=== PATIENT | female | born 1945 | race African-American/Black ===

== ENCOUNTER 2017-02-25 17:42 | Emergency (ER) | payer MEDICARE, MEDICAID ==
[2015-11-10 15:21] VITALS: BMI 37.6
[~2017-02-25 17:42] MED LIST: AMITIZA24 MCG PO; BAYER CHEWABLE81 MG PO; CARDIZEM CD120 MG PO; COREG 3.1253.125 MG GT; COZAAR50 MG PO; HUMALOG 30100 UNITS/ SC; HYDROCODON-ACE1 EAC7 PO; LANTUS SOL100 UNIT/1 SC; LEVEMIR100 U/M1 SQ; MIRALAX17 GM PO; REGLAN10 MG PO; VICTOZA0.6 MG/0.1 SQ; ZOCOR40 MG PO
== END 2017-02-25 19:29 | disposition home or self-care (01) ==
LOC: D.ER 17:42
DX: S43.401A Unspecified sprain of right shoulder joint, initial encounter (principal); W18.30XA Fall on same level, unspecified, initial encounter; Y93.89 Activity, other specified; Y92.019 Unspecified place in single-family (private) house as the place of occurrence of the external cause; M25.561 Pain in right knee; M25.562 Pain in left knee; I10 Essential (primary) hypertension; E87.6 Hypokalemia; E11.9 Type 2 diabetes mellitus without complications; Z79.4 Long term (current) use of insulin

== ENCOUNTER 2017-08-17 07:33 | Emergency (ER) | payer MEDICARE ==
[2015-11-10 15:21] VITALS: BMI 37.6
[2017-08-17 08:16] LABS: BASOPHILS 0.3 % (0-2); EOSINOPHILS 2.2 % (0-7); HEMATOCRIT 33.7 % (36.0-48.0); HEMOGLOBIN 11.8 g/dL (12-16); IMMATURE GRANULOCYTES 0.3 % (0-5); LYMPHOCYTES 32.5 % (15-50); MCH 31.8 pg (26.0-34.0); MCV 90.8 fL (80.0-100.0); MEAN PLATELET VOLUME 10.7 fL (7.4-10.4); MONOCYTES 6.1 % (2-11); NEUTROPHILS 58.6 % (40-80); PLATELET COUNT 225 10x3/uL (130-400); RBC 3.71 10x6/uL (4.00-5.40); RDW 12.4 % (11.5-14.5); WBC 7.3 10x3/uL (4.8-10.8)
[2017-08-17 08:35] LABS: ALBUMIN 3.6 g/dL (3.4-5.0); ANION GAP 10.3 mmol/L (8-16); BILIRUBIN - TOTAL 1.1 mg/dL (0.2-1.3); CALCIUM 10.5 mg/dL (8.5-10.1); CARBON DIOXIDE 26.3 mmol/L (21.0-32.0); CREATININE - SERUM 1.3 mg/dL (0.6-1.3); POTASSIUM - SERUM 3.6 mmol/L (3.5-5.1); PROTEIN - SERUM 6.8 g/dL (6.4-8.2)
[2017-08-17 12:27] LABS: APPEARANCE CLEAR (CLEAR); BILIRUBIN NEGATIVE (NEGATIVE); COLOR YELLOW (YELLOW); GLUCOSE NEGATIVE (NEGATIVE); KETONE NEGATIVE (NEGATIVE); LEUKOCYTE ESTERASE NEGATIVE (NEGATIVE); NITRITE NEGATIVE (NEGATIVE); PROTEIN NEGATIVE (NEGATIVE); UROBILINOGEN NORMAL (NORMAL)
== END 2017-08-17 13:10 | disposition home or self-care (01) ==
LOC: D.ER 07:33
PROVIDERS: Emergency Medicine; Family Medicine
DX: R10.9 Unspecified abdominal pain (principal); I10 Essential (primary) hypertension; E11.9 Type 2 diabetes mellitus without complications; Z79.4 Long term (current) use of insulin

== ENCOUNTER 2017-09-15 07:54 | Emergency (ER) | payer MEDICARE ==
[2015-11-10 15:21] VITALS: BMI 37.6
[~2017-09-15 07:54] MED LIST changes: -COREG 3.1253.125 MG GT; +COREG 3.1253.125 MG PO
== END 2017-09-15 09:35 | disposition home or self-care (01) ==
LOC: D.ER 07:54
DX: S91.352A Open bite, left foot, initial encounter (principal); W53.11XA Bitten by rat, initial encounter; Y93.89 Activity, other specified; Y92.029 Unspecified place in mobile home as the place of occurrence of the external cause; S91.105A Unspecified open wound of left lesser toe(s) without damage to nail, initial encounter; I10 Essential (primary) hypertension; E11.9 Type 2 diabetes mellitus without complications; Z79.4 Long term (current) use of insulin

== ENCOUNTER 2017-10-07 17:45 | Emergency (ER) | payer MEDICARE ==
[2015-11-10 15:21] VITALS: BMI 37.6
== END 2017-10-07 17:46 | disposition left against medical advice (07) ==
LOC: D.ER 17:45
DX: Z02.9 Encounter for administrative examinations, unspecified (principal)

== ENCOUNTER 2017-10-07 21:11 | Emergency (ER) | payer MEDICARE ==
[2015-11-10 15:21] VITALS: BMI 37.6
[2017-10-07 23:31] LABS: BASOPHILS 0 % (0-2); EOSINOPHILS 0 % (0-7); HEMATOCRIT 32.9 % (36.0-48.0); HEMOGLOBIN 11.6 g/dL (12-16); IMMATURE GRANULOCYTES 0.4 % (0-5); LYMPHOCYTES 11.3 % (15-50); MCH 31.7 pg (26.0-34.0); MCHC 35.3 g/dL (31.0-37.0); MCV 89.9 fL (80.0-100.0); MEAN PLATELET VOLUME 11.1 fL (7.4-10.4); MONOCYTES 8.1 % (2-11); NEUTROPHILS 80.2 % (40-80); PLATELET COUNT 255 10x3/uL (130-400); RBC 3.66 10x6/uL (4.00-5.40); RDW 12.3 % (11.5-14.5); WBC 12.5 10x3/uL (4.8-10.8)
[2017-10-07 23:50] LABS: ALBUMIN 3.7 g/dL (3.4-5.0); ANION GAP 13.5 mmol/L (8-16); BILIRUBIN - TOTAL 1.1 mg/dL (0.2-1.3); CALCIUM 10.3 mg/dL (8.5-10.1); CARBON DIOXIDE 30.5 mmol/L (21.0-32.0); CREATININE - SERUM 1.3 mg/dL (0.6-1.3); PROTEIN - SERUM 7.9 g/dL (6.4-8.2)
[2017-10-08 00:36] LABS: APPEARANCE CLEAR (CLEAR); COLOR YELLOW (YELLOW)
[2017-10-08 00:37] LABS: BACTERIA FEW /hpf (NONE SEEN); BILIRUBIN NEGATIVE (NEGATIVE); GLUCOSE 1000 mg/dL (NEGATIVE); KETONE SMALL mg/dL (NEGATIVE); NITRITE NEGATIVE (NEGATIVE); PROTEIN TRACE mg/dL (NEGATIVE); RED CELLS - URINE 0-5 /hpf (0-5); SPECIFIC GRAVITY 1.015 (1.005-1.020); UROBILINOGEN NORMAL (NORMAL); WHITE CELLS - URINE 0-5 /hpf (0-5)
== END 2017-10-08 04:23 | disposition home or self-care (01) ==
LOC: D.ER 21:11
PROVIDERS: Family Medicine
DX: K59.00 Constipation, unspecified (principal); E87.6 Hypokalemia; I10 Essential (primary) hypertension; E11.9 Type 2 diabetes mellitus without complications; Z79.4 Long term (current) use of insulin

== ENCOUNTER 2017-10-10 19:30 | Observation (INO) | payer MEDICARE ==
[~2017-10-10] VITALS: Ht 162.6 cm; Wt 73.7 kg
[2017-10-10 21:21] LABS: ALBUMIN 3.2 g/dL (3.4-5.0); ALKALINE PHOSPHATASE 69 U/L (46-116); ALT (SGPT) 16 U/L (10-68); BILIRUBIN - TOTAL 1.09 mg/dL (0.2-1.3); CALCIUM 11.2 mg/dL (8.5-10.1); CARBON DIOXIDE 29.7 mmol/L (21.0-32.0); CHLORIDE - SERUM 99 mmol/L (98-107); CREATININE - SERUM 1.4 mg/dL (0.6-1.3); PROTEIN - SERUM 7.5 g/dL (6.4-8.2); SODIUM 137 mmol/L (136-145); UREA NITROGEN 27 mg/dL (7-18); eGFR NON AFRICAN AMERICAN 39 mL/min (90-120)
[2017-10-10 21:22] LABS: BASOPHILS 0.1 % (0-2); EOSINOPHILS 0.5 % (0-7); HEMATOCRIT 35.4 % (36.0-48.0); HEMOGLOBIN 12.2 g/dL (12-16); IMMATURE GRANULOCYTES 0.4 % (0-5); LYMPHOCYTES 21.2 % (15-50); MCH 31.9 pg (26.0-34.0); MCHC 34.5 g/dL (31.0-37.0); MCV 92.4 fL (80.0-100.0); MEAN PLATELET VOLUME 11.2 fL (7.4-10.4); NEUTROPHILS 69.8 % (40-80); PLATELET COUNT 244 10x3/uL (130-400); RBC 3.83 10x6/uL (4.00-5.40); RDW 12.2 % (11.5-14.5); WBC 12.8 10x3/uL (4.8-10.8)
[2017-10-10 21:25] LABS: LIPASE 69 U/L (73-393)
[2017-10-10 21:26] LABS: CALC OSMOLALITY 284 mosm/kg (275-300); GLUCOSE 201 mg/dL (74-106); TROPONIN-I < 0.017 ng/mL (0.000-0.060)
[2017-10-11 00:04] LABS: ANION GAP 13.6 mmol/L (8-16); CALCIUM 10.6 mg/dL (8.5-10.1); CARBON DIOXIDE 28.1 mmol/L (21.0-32.0); CREATININE - SERUM 1.1 mg/dL (0.6-1.3)
[2017-10-11 00:05] LABS: POTASSIUM - SERUM 3.7 mmol/L (3.5-5.1)
--- NOTE | 2017-10-11 02:37 | NUR ---
PATIENT CAME IN FROM ER WITH NO IV ACCESS. SEVERAL MEMBERS OF THE ER STAFF WERE UNABLE TO OBTAIN IV ACCESS. ORDER FOR A PICC LINE WILL BE PLACED IN THE MORNING. PATIENTS DAUGHTER HAS REQUESTED FOR SECURITY ON PATIENT INFORMATION AND TO BE NOTIFIED IF THERE ARE ANY CHANGES. PATIENT IS CONFUSED, AND HAS NOT KEPT HER MEDICATIONS DOWN IN SEVERAL DAYS DUE TO N/V. CHIEF CONCERN N/V, WEIGHT LOSS, CONFUSION. BED IN LOW POSITION, CALL LIGHT IN REACH.
[2017-10-11 04:24] VITALS: BP 106/47; BP 162/87
--- NOTE | 2017-10-11 04:59 | NUR ---
PATIENT REFUSES TO STAY IN BED, SHE IS UP IN A CHAIR AND NEEDING ONE ON ONE CARE. CHAIR IS LOCATED IN NURSES STATION SO THAT SHE CAN BE WATCHED CLOSELY BECAUSE SHE IS VERY CONFUSED.
--- NOTE | 2017-10-11 06:20 | NUR ---
PATIENT IS STILL SITTING UP IN A CHAIR AT THE NURSES STATION. CONFUSED AND UNABLE TO FOLLOW COMANDS. PATIENT IS OCCUPIED AT ALL TIMES.
--- NOTE | 2017-10-11 06:42 | NUR ---
UNABLE TO OBTAIN URINE SAMPLE DUE TO INCONTINENCE.
--- NOTE | 2017-10-11 07:48 | NUR ---
ASSESSMENT DONE. DENIES NEEDS.
[2017-10-11 08:17] VITALS: BP 130/96
--- NOTE | 2017-10-11 09:15 | NUR ---
PT SITTING UP IN CHAIR AT NURSES STATION WITH HER NURSE. PT IS RESTING QUIETLY AND BEING COOPERATIVE. NO CURRENT NEEDS AT THIS TIME. WILL CPOC.
--- NOTE | 2017-10-11 10:30 | NUR ---
PT COUGHING WHEN DRINKING WATER. DR LAM. MEDS HELD.
[2017-10-11 12:16] VITALS: BP 158/88
[2017-10-11 14:22] VITALS: Ht 162.6 cm; Wt 73.7 kg
[2017-10-11 14:54] VITALS: BP 173/90
[2017-10-11 20:06] VITALS: BP 134/62
--- NOTE | 2017-10-11 20:08 | NUR ---
STARTED FLUIDS NS AT 75 ML/HR. WRAPPED IV IN CURLEX TO AVOID BEING DISLODGED. PATIENT TOLERATED. DAUGHTER AT BEDSIDE. BED LOW, CALL LIGHT IN REACH.
--- NOTE | 2017-10-11 23:56 | NUR ---
PATIENT IS RESTLESS AND SPITTING. PRN ZOFRAN ADMINISTERED PER ORDERS FOR NAUSIA. PATIENT IS RESTING MORE COMFORTABLY TONIGHT THEN LAST NIGHT BECAUSE OF THE FLUIDS, HALODOL AND ZOFRAN. DENIES ANY NEEDS AT THIS TIME. CALL LIGHT IN REACH, BED IN LOW POSITION.
[2017-10-12 00:45] VITALS: BP 125/67
--- NOTE | 2017-10-12 02:44 | NUR ---
PATIENT WAS SLEEPING WHILE SITTING UP IN BED. SHE HAD SOME THICKENED WATER AND APPLE JUICE , SHE COUGHED WHEN SWALLOWING EVEN THE NECTAR THICK LIQUIDS. PATIENT DENIES ANY NEEDS, SHE IS CONFUSED AND TALKS ABOUT FAMILY MEMBERS WHO ARE NOT IN THE ROOM. NS IS RUNNING AT 75. BED LOW, CALL LIGHT IN REACH. SHE IS LOCATED NEAR THE NURSES STATION.
--- NOTE | 2017-10-12 04:03 | NUR ---
PT AWAKE, ALERT, SITTING UP IN BED, ROCKING BACK AND FORTH, CONFUSED. NO NEEDS AT THIS TIME. CONTINUE TO MONITOR CLOSELY. BED LOW, CALL LIGHT IN REACH, SIDE RAILS X 2, HOB 20 DEGREES.
--- NOTE | 2017-10-12 04:51 | NUR ---
PATIENT IS AWAKE AND ENERGETIC.PATIENT IS CONFUSED , NOT ORIENTED TO DATE, TIME, PLACE , OR SITUATION. SHE DOES KNOW HER FIRST NAME. PATIENT REFUSES GETTING CLEANED UP , SHE WILL NOT REMOVE HER SOILED PULL UP, OR ALLOW STAFF TO PLACE A CLEAN PAD UNDER HER. BED LOW , CALL LIGHT IN REACH.
[2017-10-12 05:11] VITALS: BP 113/53
--- NOTE | 2017-10-12 07:18 | NUR ---
AM ROUNDS- PT UP TO SIDE OF BED, PT CONFUSED ONLY ORIENTED TO SELF. RE-ORIENTED PT, PT ASKING FOR A BLANKET, WILL PROVIDED PT WITH BLANKET. BED LOW AND WHEELS LOCKED, CALL LIGHT IN REACH, NAD NOTED, WILL CONTINUE PLAN OF CARE.
[2017-10-12 07:56] LABS: BASOPHILS 0.1 % (0-2); EOSINOPHILS 1.4 % (0-7); HEMATOCRIT 33.6 % (36.0-48.0); HEMOGLOBIN 11.6 g/dL (12-16); IMMATURE GRANULOCYTES 0.7 % (0-5); MCH 31.7 pg (26.0-34.0); MCHC 34.5 g/dL (31.0-37.0); MCV 91.8 fL (80.0-100.0); MEAN PLATELET VOLUME 10.6 fL (7.4-10.4); MONOCYTES 9.8 % (2-11); PLATELET COUNT 280 10x3/uL (130-400); RBC 3.66 10x6/uL (4.00-5.40); RDW 12.2 % (11.5-14.5)
--- NOTE | 2017-10-12 08:10 | NUR ---
ADMINISTERED AM MEDS. PT KEPT TRYING TO SPIT MED BACK OUT. MADE SURE PT TOOK ALL MEDS. PT UP TO SIDE OF BED, EATING BREAKFAST. BED ALARM ON, CALL LIGHT IN REACH, NAD NOTED, WILL CONTINUE PLAN OF CARE.
[2017-10-12 08:15] VITALS: BP 145/80
[2017-10-12 08:19] LABS: ANION GAP 11.3 mmol/L (8-16); CREATININE - SERUM 1.3 mg/dL (0.6-1.3); POTASSIUM - SERUM 3.3 mmol/L (3.5-5.1)
[2017-10-12 12:14] VITALS: BP 140/70
--- NOTE | 2017-10-12 13:46 | NUR ---
PT REQUESTED FOR HER BLOOD SUGAR TO BE TAKE. BLOOD SUGAR WAS 229, PT UP TO CHAIR, STATES " I AM READY TO GO HOME, CAN YOU GIVE ME A RIDE. RE- ORIENTED PT TO WHERE SHE IS AT. PT DENIES ANY OTHER NEEDS AT THIS TIME. CALL LIGHT IN REACH, NAD NOTED, WILL CONTINUE PLAN OF CARE.
[2017-10-12 16:02] VITALS: BP 122/64
--- NOTE | 2017-10-12 17:04 | NUR ---
BLOOD SUGAR OF 152, 4UNITS GIVEN PER S/S. PT IN BED, EATING DINNER. ASKING ABOUT DAUGHTER, INFORMED HER THAT DAUGHTER STATED THAT SHE WOULD BE BACK LATER TONIGHT. PT DENIES ANY OTHER NEEDS AT THIS TIME. CALL LIGHT IN BRYN, MAEGAN MAT IN PLACE. NAD NOTED
--- NOTE | 2017-10-12 21:56 | NUR ---
PATIENT IS CONFUSED AND UNABLE TO FOLLOW DIRECTIONS. SHE IS ON NECTAR THICK LIQUIDS. SHE IS ABLE TO TAKE HER ORAL MEDICATIONS WITH PUDDING. SHE HAS SOME DIFFICULTY SWALLOWING AND GAGS WHEN SHE TAKES A DRINK. SHE SPITS OUT HER PILLS SEVERAL TIMES, BUT AFTER THREE TRYS SHE SWALLOWS THEM DOWN. PATIENT IS LEFT SITTING UP IN BED AT LEAST 10 TO 15 MINIUTES AFTER MEDICATION ADMINISTRATION . BED LOW , CALL LIGHT IN REACH. PATIENT IS PLACED NEAR NURSES STATION.
--- NOTE | 2017-10-12 22:18 | NUR ---
FSBS WAS 87 AT 2034. TREATED WITH APPLE JUICE , AND A PUDDING CUP. NOW AT 2229 HER FSBS IS 174.
--- NOTE | 2017-10-13 01:46 | NUR ---
PATIENT HAS BEEN VERY RESTLESS AND TRYING TO GET OUT OF BED. SHE IS UNAWARE OF HER LOCATION, AND THE SITUATION. GIVEN HER PRN MED FOR COMFORT AND HOPING THAT IT WILL ALLOW HER TO REST.BED LOW CALL LIGHT IN REACH.
[2017-10-13 01:59] VITALS: BP 141/96
--- NOTE | 2017-10-13 05:25 | NUR ---
SHRINKER AT BEDSIDE TO OBTAIN VITALS, CALL LIGHT IN REACH. WILL CONTINUE WITH PLAN OF CARE.
[2017-10-13 05:54] VITALS: BP 113/77
[2017-10-13 07:55] VITALS: BP 167/71
--- NOTE | 2017-10-13 08:13 | NUR ---
ADMINISTERED AM MEDS. PT IN BED, A DROWSY NOT REALLY WANTING TO EAT BREAKFAST. PT DENIES ANY NEEDS AT THIS TIME. CALL LIGHT IN REACH, MAEGAN MAT IN PLACE, NAD NOTED, WILL CONTINUE PLAN OF CARE.
--- NOTE | 2017-10-13 11:31 | NUR ---
BLOOD SUGAR OF 212, 8UNITS OF HUMALOG GIVEN PER S/S. PT IN BED, FIXING TO EAT LUNCH, DENIES ANY NEEDS, MAEGAN MAT IN PLACE, NAD NOTED.
[2017-10-13 12:21] VITALS: BP 129/67
--- NOTE | 2017-10-13 14:00 | NUR ---
DAUGHTER MAN AT BEDSIDE, WANTS PT TO BE TAKEN OFF CONFIDENTIAL PT. WILL CALL ADMISSION TO HAVE IT CHANGE.
--- NOTE | 2017-10-13 15:16 | NUR ---
PT IN BED SLEEPING. DAUGHTER AND OTHER FAMILY AT BEDSIDE, NAD NOTED, CALL LIGHT IN REACH.
--- NOTE | 2017-10-13 16:31 | NUR ---
BLOOD SUGAR OF 144, NO COVERAGE NEEDED PER S/S. DAUGHTER AND GRANDAUGHTER AT BEDSIDE, PT DENIES ANY NEEDS AT THIS TIME. CALL LIGHT IN REACH, NAD NOTED.
--- NOTE | 2017-10-13 19:55 | NUR ---
PT IN BED ATTEMPTING TO CLIMB OUT. YELLING AT PEOPLE FROM THE HALLWAY. VERY CONFUSED AND RESTLESS. THINKS SHE IS SHOPPING AND TAKING CARE OF A BABY. PRN HALDOL WILL BE GIVEN WITH EVENING MEDS. BREATHING EVEN AND UNLABORED. BED IN LOW POSITION, CALL LIGHT WITHIN REACH. WILL CTM.
--- NOTE | 2017-10-13 21:25 | NUR ---
PT HAD BM IN BED. COMPLETE BATH GIVEN. LINENS CHANGED. BEDTIME MEDICATION GIVEN. PT STILL RESTLESS AND VERY CONFUSED. ATTEMPTED TO REORIENT PT BUT SHE STILL TALKS ABOUT HAVING A BABY IN THE ROOM. WILL CTM.
[2017-10-13 21:43] VITALS: BP 136/67
--- NOTE | 2017-10-14 00:14 | NUR ---
PT BECAME VERY AGITATED AND CONFUSED. BEGAN YELLING AT STAFF AND ATTEMPTING TO GET OUT OF HER BED. PUT HER IN A CHAIR AND BROUGHT HER OUT TO NURSES STATION SO THAT SHE COULD GET OUT OF HER ROOM FOR ABOUT AN HOUR. PT CALMED DOWN BUT STAYED VERY CONFUSED AND COULD NOT BE REORIENTED. AFTER AN HOUR, SHE STATED SHE WAS READY FOR BED AND REQUESTED TO BE TAKEN BACK TO HER ROOM. PUT PT IN BED BUT SHE WAS STILL CONFUSED STATING SHE THOUGHT SHE WAS AT HOME. BREATHING EVEN AND UNLABORED. BED IN LOW POSITION, CALL LIGHT WITHIN REACH. WILL CTM.
[2017-10-14 01:21] VITALS: BP 120/74
[2017-10-14 06:11] LABS: ANION GAP 9.3 mmol/L (8-16); CARBON DIOXIDE 31.2 mmol/L (21.0-32.0); CREATININE - SERUM 1.4 mg/dL (0.6-1.3); POTASSIUM - SERUM 3.5 mmol/L (3.5-5.1)
--- NOTE | 2017-10-14 07:53 | NUR ---
AM ROUNDING- RECEIVED REPORT FROM CLOUD INFRASTRUCTURE ARCHITECT NURSE RANJITH. PT IS CURRENTLY SITTING UP IN BED WITH EYES CLOSED RESTING. PT WAKES UP IM IN ROOM. PT IS CLEARLY CONFUSED. ON ROOM AIR. NO MONITOR. IV SEEN TO RIGHT WRIST THAT IS SALINE LOCKED. RIGHT BKA SEEN. BED ALARM IS ON. THIS NURSE AND ROSALIA CHIANG RN SEEN PT TRYING TO GET OOB. PT TAKEN TO SIT AT NURSES STATION FOR FURTHER EVALUATION DUE TO THIS NURSE NOT BEING ABLE TO KEEP EYE ON PT IN ROOM AT ALL TIMES TO HELP PREVENT PT FROM FALLING OOB. CLARIBEL COSBY, SENIOR TALENT ACQUISITION SPECIALIST IS AWARE. WILL CONTINUE TO MONITOR AND CONTINUE WITH PLAN OF CARE.
[2017-10-14 08:00] VITALS: BP 136/69
--- NOTE | 2017-10-14 10:02 | NUR ---
DC PERKINS ASSISTED PT BACK TO ROOM DUE TO PT WANTING TO GO LAY DOWN. THIS NURSE WENT TO CHECK ON PT. PT IS LAYING IN BED. BED ALARM TURNED ON (DUE TO PT BEING CONFUSED). PT INSTRUCTED TO STAY IN BED. WILL CONTINUE TO MONITOR.
--- NOTE | 2017-10-14 11:14 | NUR ---
Patient Name: JAYDON LAWRENCE Admission Status: ER Accout number: [id number] Admission Date: 10-10-2017 : 1943 Admission Diagnosis:DEHYDRATION OF Attending: FANNY FRANCO Current LOS: 4 Anticipated DC Date: 10-14-2017 Planned Disposition: Inpatient Psych Facility Primary Insurance: [facility] PLANNED EXTERNAL PROVIDER: [facility] Discharge Planning Comments: * Is the patient Alert and Oriented? Yes 0 * How many steps to enter\\exit or inside your home? 6 0 * PCP DR. SAUCEDO 0 * Pharmacy [facility] [address] * Preadmission Environment Home with Family 0 * ADLs Partial Dependent 0 * Partial ADLs (Assistance needed) Bathing Medication Management Toileting Transfers 0 * Equipment Walker Wheelchair 0 * Other Equipment NO MEDICAL EQUIPMENT PROVIDER PREFERENCE 0 * List name and contact numbers for known caregivers / representatives who currently or will assist patient after discharge: YANELIS KEITA, DTR, 0 * Community resources currently utilized None 0 * Please name any agencies selected above. NONE 0 * Additional services required to return to the preadmission environment? Yes * Can the patient safely return to the preadmission environment? Yes 0 * Has this patient been hospitalized within the prior 30 days at any hospital? No 0 CM RECEIVED [facility] CONSULT, SPOKE TO PERSONNEL SCHEDULER WHO WILL FAX CONSULT TO [facility]. CM MET WITH PT IN ROOM TO DISCUSS DISCHARGE PLANNING AND NEEDS. PT REPORTS "TRYING TO STAY WITH MY BROTHER" AND REPORTS NEEDING ASSISTANCE WITH BATHING AND TOILETING; PT REPORTS HAVING WALKER AND WHEELCHAIR, SPENDING MOST OF HER WAKING TIME IN THE WHEELCHAIR. PT HAS NO MEDICAL EQUIPMENT PROVIDER PREFERENCE AND NO OUTSIDE SERVICES ASSISTING IN THE HOME. CM DISCUSSED AVAILABILITY OF HOME HEALTH, REHAB SERVICES AND MEDICAL EQUIPMENT. CM DISCUSSED [facility], PT INSTRUCTED CM TO CALL HER DAUGTHER SAYING "SHE CAN TELL YOU EVERYTHING." IMPORTANT MESSAGE FROM MEDICARE PROVIDED AND EXPLAINED. CM SPOKE TO DR. RUIZ IN [facility] WHO INFORMED CM THAT HE PLANS TO TAKE PT TODAY TO [facility] IF FAMILY IS IN AGREEMENT. CM CALLED YANELIS KEITA, DAUGHTER, ; YANELIS REPORTS PT LIVES WITH HER AND NEEDS ASSISTANCE WITH BATH, TOILETING, MEDICATIONS AND TRANSFERS. PT HAS BECOME INCREASINGLY CONFUSED AT HOME. NO ONE HAS POA FOR PT, YANELIS HAS BEEN CARING FOR PT FOR YEARS AND MAKES DECISIONS FOR HER. [facility] CONSULT DISCUSSED, YANELIS IN AGREEMENT WITH DISCHARGE TO [facility] AND UNDERSTANDS [facility] TO BE A LOCKED PSYCHIATRIC UNIT. CM VERFIED CELL NUMBER AND NOTIFIED HER THAT DR FRANCO WANTS PT TO DISCHARGE TO [facility] TODAY. YANELIS IS IN AGREEMENT WITH DISCHARGE PLAN. CM DISCUSSED IMPORTANT MESSAGE FROM MEDICARE VIA PHONE AND PROVIDED CM CONTACT INFORMATION TO [facility] IF NEEDED. CM NOTIFIED NURSE BELINDA OF [facility] WHO WILL CONTACT PT'S DAUGHTER REGARDING PT'S ADMISSION TO [facility] AND GET BACK WITH CM SHORTLY. Financial Recording Clerk: Ludwig Mcclain
--- NOTE | 2017-10-14 12:23 | NUR ---
DR. TRIPP OFFICE CALLED REAGRDING PT BEING ACCEPTED FOR JAIL AND PT NEEDING D/C ORDERS. WILL AWAIT CALLBACK.
--- NOTE | 2017-10-14 13:19 | NUR ---
CALLED DR. TRIPP OFFICE FOR SECOND TIME AND SPOKE WITH ANSWERING SERVICE (CECY). CECY STATES SHE WILL SENT MESSAGE. CALLBACK NUMBER GIVEN. WILL CONTINUE TO MONITOR.
--- NOTE | 2017-10-14 13:27 | NUR ---
DR. FRANCO CALLED BACK WITH TELEPHONE ORDERS TO D/C PT WITH HOME MEDICATIONS. D/C COORDINATOR (ON SHIFT NOW) IS AWARE OF MEDICATIONS TO CONTINUE AND STOP (STOP HALDOL).
--- NOTE | 2017-10-14 14:55 | NUR ---
REPORT CALLED TO BELINDA IN [facility]. D/C PAPERWORK EXPLAINED TO DAUGHTER (PT IS CONFUSED). D/C PAPERWORK SIGNED BY PT AND PLACED IN CHART. PT D/C TO [facility] VIA WHEELCHAIR ACCOMPANIED BY DC PERKINS AND DAUGHTER.
--- NOTE | 2017-10-15 11:29 | CN ---
PATIENT NAME:JAYDON LAWRENCE MEDICAL RECORD: [id number] : 43 LOCATION:D. D.2139 ADMIT DATE: 10/10/17 ACCOUNT: [id number] CONSULTING PHYSICIAN: CATRACHITA RUIZ MD REFERRING PHYSICIAN: FANNY FRANCO MD DATE OF CONSULTATION: 10/14/2017 PSYCHIATRIC EVALUATION IDENTIFYING DATA: The patient is 72 years old and she is admitted to the hospital secondary to mental status changes. HISTORY OF PRESENT ILLNESS: The patient has a known history of dementia. She lives with her family. She has been increasingly confused, combative, and agitated in recent days. Last night, she was blocking the room and making delusional statements and fighting with the nursing staff. On interview today, she is very confused, quite agitated something about, and is mumbling something about wanting me to help her get to her mother and father. MENTAL STATUS EXAMINATION: The patient is awake, alert, and oriented to person only. Her mood is angry. Her affect is constricted. Thought processes are disorganized and her memory, concentration, and abstraction abilities are severely impaired. She would not answer questions about delusions or hallucinations. She denies that she wants to harm herself or others. ASSESSMENT: Vascular dementia. PLAN: The patient should be transferred to inpatient psychiatric care once medically stabilized. Her behaviors make her unmanageable in an outpatient setting and once she is calmed, certainly an evaluation as to the least restrictive environment can be made. Clearly most individuals with this level of impairment live in a group home. TRANSINT:[id number] Voice Confirmation ID: [id number] DOCUMENT ID: [id number] CATRACHITA RUIZ MD at 1129 CC: [id number] DICTATION DATE: 10/14/17 0954 WEB PORTAL DEVELOPER: 10/14/17 1048 DIS IN 10/14/17 [facility] [address] [place] [address]
== END 2017-10-14 15:00 | disposition short-term general hospital (02) ==
LOC: D.ER 19:30 → D.M2 23:09 → OBSVTIME 23:09 → D.M2 10-14 15:00
PROVIDERS: Emergency Medicine; Family Medicine; Physician Assistant; ADMIT Family Medicine
DX: E86.0 Dehydration (principal); E87.6 Hypokalemia; G93.40 Encephalopathy, unspecified; K59.00 Constipation, unspecified; K21.9 Gastro-esophageal reflux disease without esophagitis; E11.9 Type 2 diabetes mellitus without complications; Z79.4 Long term (current) use of insulin; I10 Essential (primary) hypertension; F01.50 Vascular dementia, unspecified severity, without behavioral disturbance, psychotic disturbance, mood disturbance, and anxiety

== ENCOUNTER 2017-10-14 15:00 | Inpatient (IN) | payer MEDICARE ==
[2017-10-14 15:44] VITALS: BP 110/60; BMI 27.8
--- NOTE | 2017-10-14 16:50 | NUR ---
PATIENT'S FSBS WAS 208, NO SLIDING SCALE.
[2017-10-14 17:05] LABS: BASOPHILS 0.1 % (0-2); EOSINOPHILS 1.7 % (0-7); HEMATOCRIT 32.8 % (36.0-48.0); HEMOGLOBIN 10.9 g/dL (12-16); IMMATURE GRANULOCYTES 0.6 % (0-5); LYMPHOCYTES 30.3 % (15-50); MCH 31.1 pg (26.0-34.0); MCHC 33.2 g/dL (31.0-37.0); MCV 93.7 fL (80.0-100.0); MEAN PLATELET VOLUME 10.4 fL (7.4-10.4); MONOCYTES 10.1 % (2-11); NEUTROPHILS 57.2 % (40-80); PLATELET COUNT 308 10x3/uL (130-400); RDW 12.3 % (11.5-14.5); WBC 9.4 10x3/uL (4.8-10.8)
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
[2017-10-14 17:21] LABS: HEMOGLOBIN A1C 7.1 % (4.8-6.0)
--- NOTE | 2017-10-14 17:24 | NUR ---
PATIENT REQUESTS SOMETHING FOR NERVES, DID PROVIDE ATIVAN 0.5 MG PO AND HALDOL 2 MG PO, AFTER GIVING THE PO MEDS, PATIENT SAID "NOW CAN I HAVE MY SHOT AND GO TO BED, I WON'T BOTHER ANYONE" EXPLAINED TO PATIENT THAT THE MEDICINE JUST GIVEN WAS FOR HER NERVES. PATIENT STILL WANTS TO GO TO BED. PATIENT DOES HAVE A LARGE FAMILY AND ONE OF HER DAUGHTERS CALLED FROM THE ER AND SAID "I HAVEN'T SEEN MY MOTHER IN TWO YEARS I JUST NEED TO COME LAY MY EYE ON HER" EXPLAINED TO HER THAT SHE MAY SPEAK TO HER, BUT THAT IT IS NOT VISITATION DAY, BUT IT IS NOW CLOSE TO PHONE CALL TIMES AND TOMORROW IS VISITATION DAY. PATIENT'S DAUGHTER VERBALIZED UNDERSTANDING AND SHE DID SPEAK WITH HER AT THIS TIME.
[2017-10-14 17:37] LABS: ANION GAP 6.6 mmol/L (8-16); BILIRUBIN - TOTAL 0.7 mg/dL (0.2-1.3); CALCIUM 10.3 mg/dL (8.5-10.1); CARBON DIOXIDE 35.3 mmol/L (21.0-32.0); CHOL - HDL RATIO 2.4 ratio (2.3-4.1); CREATININE - SERUM 1.5 mg/dL (0.6-1.3); POTASSIUM - SERUM 3.9 mmol/L (3.5-5.1); PROTEIN - SERUM 6.4 g/dL (6.4-8.2); THYROID STIMULATING HORMONE 0.26 uIU/mL (0.36-3.74)
--- NOTE | 2017-10-14 18:13 | NUR ---
TOOK PATIENT TO THE BATHROOM TO VOID AND SHE REFUSED TO LET BALJIT ASSIST HER WITH HER BRIEF, SHE REFUSES TO WEAR ONE. PATIENT DOES NOT HAVE A BRIEF ON AT THIS TIME.
[2017-10-14 18:22] VITALS: BMI 28.7
[2017-10-14 19:57] VITALS: BP 124/63
--- NOTE | 2017-10-14 23:31 | NUR ---
B) Patient is hyper verbal, intrusive with staff, and very delusional, carried on conversation with her entire family at a zoroastrianism event bossing them around like children, restless and fighting sleep, I) Administered scheduled medications, PRN Ativan o.5 mg PO and Hadlol 2 mg PO given at 21:00 for anxiety, PRN Ativan 0.5 mg IM and Haldol 2 mg IM given at 23:20 for anxiety R) Medication compliant, patient resting at 2330, P) Continue plan of care.
[2017-10-15 08:00] VITALS: BP 148/65
[2017-10-15 08:06] VITALS: Wt 75.8 kg
--- NOTE | 2017-10-15 10:00 | NUR ---
B) PATIENT IS SLEEPY, SHE IS PICKING AT THINGS IN THE AIR AND TALKIMG TO FAMILY THAT IS NOT THERE, SHE IS KEEPING HER EYES CLOTHES, IT TOOK THREE STAFF TO LIFT HER TO THE TOILET. SHE IS RESTING IN THE OCTAVIO CHAIR IN THE DAY ROOM. SHE HAS A RBKA, DOES NOT HAVE HER PROSTHESIS ON. I) PROVIDE PRESCRIBED MEDS. R) PATIENT DID NOT HAVE AM MEDS BECAUSE SHE IS TOO SLEEPY. P) CONTINUE POC.
--- NOTE | 2017-10-15 14:00 | NUR ---
PATIENT'S SON GINGER LAWRENCE CAME IN FROM [place] AND THIS NURSE CALLED [facility] TO GET PERMISSION TO VISIT OUTSIDE OF REGULAR VISITATION TIMES. JUANCARLOS DID OK VISIT. MR. LAWRENCE REQUESTS TO SPEAK TO THE PSYCHIATRIST AND HE SAYS "IF I MAY SPEAK TO THE DRNeri I WILL SHED SOME LIGHT ON THE SITUATION" THERE IS A LOT OF FAMILY DYNAMICS THAT THE SENIOR RESEARCH ENGINEER WILL PROBABLY HAVE TO SPEAK TO THE FAMILY.
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
[2017-10-15 21:13] VITALS: BP 104/56
--- NOTE | 2017-10-16 04:55 | NUR ---
B) Patient is alert and oriented to self only, difficult to redirect, I) Administered scheduled medications, monitored for safety, R) Medication compliant, resting in bed now, P) Continue plan of care.
[2017-10-16 07:00] VITALS: BP 131/71
--- NOTE | 2017-10-16 12:00 | NUR ---
CONFUSED AND DISORIENTED.HAS SLEPT MOST OS THE DAY.REQUIRES TOTAL CARE,SPOON FED PER STAFF WITH POOR RESPONSE.MEDS TAKEN CRUSHED AND PUT IN APPLESAUCE.WILL CONTINUE WITH PLAN OF CARE,MONITOR FOR CHANGES AND SAFETY.
--- NOTE | 2017-10-16 12:01 | PN ---
PATIENT:JAYDON LAWRENCE MEDICAL RECORD: [id number] LOCATION:[facility] ADMISSION DATE: 10/14/17 PROGRESS NOTE DATE OF SERVICE: 10/15/2017 PROGRESS NOTE AND EVALUATION IDENTIFYING DATA: The patient is 72 years old and she is admitted to the hospital on a voluntary basis. CHIEF COMPLAINT: Confusion and aggression. HISTORY OF PRESENT ILLNESS: The patient presented to the hospital with the change in mental status. She has an established diagnosis of dementia. She has become increasingly confused, paranoid, and has had some hallucinatory experiences. Although she had mild dehydration and hypokalemia, the correction in these metabolic imbalances were not thought to be the cause of the behavior changes and once they were corrected, the behavior changes were still present. The patient was subsequently referred to the behavioral unit for evaluation and treatment. PAST MEDICAL HISTORY: Significant for hypertension and diabetes. PAST PSYCHIATRIC HISTORY: Significant for an established diagnosis of dementia. ALLERGIES: PHENERGAN AND MORPHINE. CURRENT MEDICATIONS: Include MiraLax, aspirin, Zocor, insulin, Coreg, [place]. FAMILY HISTORY: Unknown. SOCIAL HISTORY: The patient is single. She does have adult children and she is not able to provide much in the way of useful history, although she does deny history of drug and alcohol abuse, although again it is uncertain if this is reliable. MENTAL STATUS EXAMINATION: The patient is awake, alert, and oriented to person only. Her mood is anxious. Her affect is constricted. Thought processes are circumstantial. Memory, concentration, and abstraction abilities are moderately impaired and she denies any active intent to harm herself or others as well as psychotic symptoms. ASSETS: Supportive family members. LIABILITIES: Limited insight. DIAGNOSTIC IMPRESSION: AXIS I: Vascular dementia. AXIS II: None. AXIS III: Hypertension, gastroesophageal reflux disease, diabetes, chronic renal failure, and hyperlipidemia. AXIS IV: Moderate stressors. AXIS V: Global assessment of functioning is 25. PROGRESS NOTE [id number] JAYDON LAWRENCE PLAN: At this time, the patient is admitted to the hospital for a comprehensive medical, psychological, and social evaluation. She will be treated with both mood stabilizing and memory enhancing medications. Her long-term prognosis is guarded. TRANSINT:[id number] Voice Confirmation ID: [id number] DOCUMENT ID: [id number] CATRACHITA RUIZ MD at 1201 CC: [id number] DICTATION DATE: 10/15/17 1141 GRID INSPECTOR: 10/15/17 1226 ADM IN [facility] [address] [place] [id number]
--- NOTE | 2017-10-16 20:26 | NUR ---
RECEIVED IN HALLWAY. SITTING IN A WHEELCHAIR. CONFUSED. CALM AND COOPERATIVE WITH CARE AND ASSESSMENTS. NO SIGNS OF HALLUCINATIONS. NO SIGNS OF PARANOIA. REDIRECT AND REORIENT NEEDED. CONTINUES TO MOVE ABOUT HALLWAY IN WHEELCHAIR. CONTINUE PLAN OF CARE
[2017-10-16 20:29] VITALS: BP 165/100
--- NOTE | 2017-10-16 22:15 | NUR ---
PATIENT ATTEMPTS TO PUT SELF INTO FLOOR CONSTANTLY. DIFFICULT TO REDIRECT BECOMING INCREASINGLY AGGRESSIVE. ONE ON ONE CARE REQUIRED FOR SAFETY. PRN ATIVAN 0.5 MG IM GIVEN FOR INCREASING ANXIETY AND PRN HALDOL 2 MG IM GIVEN FOR PSYCHOTIC BEHAVIORS.
[2017-10-17 07:00] VITALS: BP 131/81
--- NOTE | 2017-10-17 09:31 | NUR ---
PT MEDS CRUSHED IN APPLESAUCE. PT WOULD NOT TAKE MEDICATION AND SPIT OUT THE TWO BITES I GOT INTO HER MOUTH. PT IS SLEEPING IN DAY ROOM AT THIS TIME. YOVANY.
--- NOTE | 2017-10-17 09:55 | NUR ---
ADMINISTERED 1G GLUCAGON SUBQ DUE TO FSBS OF 67 AND PT NOT EATING. WCTM.
[2017-10-17 13:11] LABS: VITAMIN D 25 HYDROXY 59.5 ng/mL (30.0-100.0)
--- NOTE | 2017-10-17 13:51 | PN ---
PATIENT:JAYDON LAWRENCE MEDICAL RECORD: [id number] LOCATION:[facility] ADMISSION DATE: 10/14/17 PROGRESS NOTE DATE OF SERVICE: 10/16/2017 SUBJECTIVE: The patient's case was discussed with staff. She has no new complaint. OBJECTIVE: The patient is in good behavioral control, but severely impaired cognitively. She has very limited insight about her condition. She has not been actively paranoid or delusional today, but again is only oriented to person. ASSESSMENT: No change in diagnoses. PLAN: Current medicines have been reviewed. Her long-term prognosis is guarded. TRANSINT:[id number] Voice Confirmation ID: [id number] DOCUMENT ID: [id number] CATRACHITA RUIZ MD at 1351 CC: [id number] DICTATION DATE: 10/16/17 [address] SEALER: 10/16/17 1231 ADM IN [facility] [address] [place] [address]
[2017-10-17 20:00] VITALS: BP 111/61
--- NOTE | 2017-10-17 20:55 | NUR ---
RECEIVED IN BEDROOM. RESTING IN BED WITH EYES CLOSED. RESPONDS TO TOUCH. CALM AND COOPERATIVE WITH CARE AND ASSESSMENT. NO SIGNS OF HALLUCINATIONS. NO SIGNS OF PARANOIA. REDIRECT AND REORIENT NEEDED. RESTING IN BED WITH EYES CLOSED AT THIS TIME. CONTINUE PLAN OF CARE
--- NOTE | 2017-10-17 21:54 | NUR ---
PATIENT LETHARGIC. HELD PO MEDS.
--- NOTE | 2017-10-17 22:50 | NUR ---
PATIENT INCREASED LETHARGIC STATE. FSBS 27. STAT LAB ORDER.
--- NOTE | 2017-10-18 00:10 | NUR ---
PATIENT IN BED. LETHARGIC CONDITION INCREASING. UNRESPONSIVE. FSBS 27. LAB CALLED AND STAT ORDER FOR BLOOD GLUCOSE LEVEL. DOCTOR MAZIN PAGED. GLUCAGON 1 MG IM GIVEN PER HYPOGLYCEMIC PROTOCOL. CRITICAL LAB RESULT OF 29 RECEIVED FOR BLOOD GLUCOSE. RAPID RESPONSE CALLED. SUZY DE LEÓN FROM ICU RESPONDS. IV STARTED LEFT FOREARM. 1 AMP D50 GIVEN IV PUSH. O2 STARTED AT 2L. DOCTOR RETANA RETURNED CALL AND NEW ORDER FOR NORMAL SALINE AT 100 ML/HR RECEIVED, CONTINUE TO MONITOR GLUCOSE LEVELS. FSBS RECHECKED DURING RAPID RESPONSE WITH 236 RESULT. CALLED PATIENTS DAUGHTER AND INFORMED OF SITUATION. PATIENT IS RESPONSIVE AND STABLE AT THIS TIME. CONTINUE TO MONITOR.
--- NOTE | 2017-10-18 01:46 | NUR ---
PATIENT PULLED OUT IV. NEW IV STARTED X 2 ATTEMPTS IN LEFT FOREARM. IV TUBING COVERED TO PROTECT PLACEMENT OF IV. FSBS RECHECKED WITH RESULT OF 218.
[2017-10-18 03:09] LABS: RAPID PLASMA REAGIN Non Reactive (Non Reactive)
--- NOTE | 2017-10-18 05:00 | NUR ---
FSBS RECHECKED WITH RESULT OF 122. SNACK OF CHOCOLATE PUDDING GIVEN.
[2017-10-18 08:19] LABS: FOLATE (FOLIC ACID) - SERUM 17.1 ng/mL (>3.0)
[2017-10-18 09:00] VITALS: BP 138/88
--- NOTE | 2017-10-18 11:52 | PN ---
PATIENT:JAYDON LAWRENCE MEDICAL RECORD: [id number] LOCATION:[facility] ADMISSION DATE: 10/14/17 PROGRESS NOTE DATE OF SERVICE: 10/17/2017 SUBJECTIVE: The patient's case was discussed with staff. She has no new complaint. OBJECTIVE: The patient is very disorganized and severely impaired. She did receive p.r.n. Haldol and Ativan last night because of some agitated behavior. Today, she is still fairly sedated. ASSESSMENT: No change in diagnoses. PLAN: Supportive and educational interventions were made. Correction prognosis is guarded. TRANSINT:[id number] Voice Confirmation ID: [id number] DOCUMENT ID: [id number] CATRACHITA RUIZ MD at 1152 CC: [id number] DICTATION DATE: 10/17/17 1414 MEDICAL LOGISTICS SPECIALIST: 10/17/17 1452 ADM IN [facility] [address] [id number]
[2017-10-18 19:36] VITALS: BP 152/78
--- NOTE | 2017-10-18 22:00 | NUR ---
IV INFILTRATED. IV DC'D. WARM BLANKET TO LEFT ARM. ATTEMPTED IV SITING WITH NO SUCCESS. CALLED MED 2 REQUESTING SOMEONE COME DOWN TO ATTEMPT IV.
--- NOTE | 2017-10-18 23:30 | NUR ---
MED 2 NURSE ATTEMPTED IV X2 WITHOUT SUCCESS. REHAB NURSE REQUESTED TO ATTEMPT IV SITING. REHAB NURSE ATTEMPTED IV X2 WITHOUT SUCCESS.
--- NOTE | 2017-10-19 00:30 | NUR ---
ANOTHER MED 2 NURSE CAME TO ATTEMPT IV SITING. ATTEMPTED TO START IV X2 WITHOUT SUCCESS. CUMULATIVE EFFECTS ANALYST CAME TO ATTEMPT IV BUT WOULD NOT ATTEMPT DUE TO NOT FINDING A VIABLE LOCATION.
--- NOTE | 2017-10-19 02:11 | NUR ---
RECEIVED IN PATIENT ROOM. PATIENT ATTEMPTING TO CLIMB OUT OF BED. MAEGAN ALARM SOUNDING. VERY CONFUSED. HALLUCINATING. PARANOID. COOPERATIVE WITH CARE AND ASSESSMENT. ENCOURAGE TO EXPRESS NEEDS. REDIRECT AND REORIENT NEEDED. PATIENT CONTINUES ATTEMPTING TO CLIMB OUT OF BED. CONTINUE PLAN OF CARE.
--- NOTE | 2017-10-19 08:34 | NUR ---
B) PATIENT IS SLEEPY, BUT SHE IS TALKING AND PULLING HER CLOTHES OFF. SHE IS NONSENSICAL, SHE IS TALKING TO HER CHILDREN THAT ARE NOT HERE. I) PROVIDE PRESCRIBED MEDS. R) PATIENT IS COMPLINAT WITH MEDS. P) CONTINUE POC.
[2017-10-19 09:53] VITALS: BP 112/61
--- NOTE | 2017-10-19 12:01 | NUR ---
Wound care consult: Pt has an open 0.5cm x 0.5cm wound on the lateral side of her left #5 toe. The wound bed is pink and is not tender to the touch. No s/s infection noted. Treatment at home was cleansing with soap and water, patting dry, painting with betadine and covering with bandaid. Recommend continuing with this treatment. Wound care will follow as needed.
--- NOTE | 2017-10-19 13:17 | NUR ---
Nutrition Follow Up: Pt is eating 22% meal avg on a diabetic pureed diet with nectar thick liquids. She is receiving Glucerna TID. Per nursing pt only eats a few bites at each meal. + BM 10/19/17. Meds and labs reviewed. Rec consider liberalizing diet to encourage po intake. Rec consider an appetite stimulant. Will continue to provide selective menus and honor food preferences within diet ordered. Will continue to send Glucerna TID. RD following.
--- NOTE | 2017-10-19 14:06 | PN ---
PATIENT:JAYDON LAWRENCE MEDICAL RECORD: [id number] LOCATION:[facility] ADMISSION DATE: 10/14/17 PROGRESS NOTE DATE OF SERVICE: 10/18/2017 SUBJECTIVE: The patient's case was discussed with staff. She has no new complaint. OBJECTIVE: The patient has had some medical setbacks. She was hypoglycemic last night. Internal medicine was contacted. She did not require being transferred to another floor. She has pretty limited insight about her situation. She is quite confused and does some rambling. ASSESSMENT: No change in diagnoses. PLAN: The patient will be maintained on current medicines. At this point, I want her blood sugar to stabilize before I make further attempts to adjust her psychiatric medicines. She is having some agitation and has been trying to get out of bed. TRANSINT:[id number] Voice Confirmation ID: [id number] DOCUMENT ID: [id number] CATRACHITA RUIZ MD at 1406 CC: [id number] DICTATION DATE: 10/18/17 1442 FOOD AND BEVERAGE ASSISTANT: 10/18/17 1557 ADM IN [facility] [address] [place] [address]
[2017-10-19 19:44] VITALS: BP 141/98
--- NOTE | 2017-10-20 02:08 | NUR ---
B) Patient is alert and oriented to name, very confused and restless at times, combative and trying to spit on staff during care I) Administered scheduled medications, PRN Ativan 0.5 mg IM and Haldol 2 mg IM given at 20:57 for anxiety R) Medication compliant, resting quietly in hallway for safety P) Continue plan of care.
[2017-10-20 07:00] LABS: ANION GAP 7.8 mmol/L (8-16); CALCIUM 10.3 mg/dL (8.5-10.1); CARBON DIOXIDE 30.1 mmol/L (21.0-32.0); CREATININE - SERUM 1.2 mg/dL (0.6-1.3); POTASSIUM - SERUM 3.9 mmol/L (3.5-5.1)
--- NOTE | 2017-10-20 08:45 | NUR ---
B) GUN PROFILER DID STATE PATIENT FOUGHT LAST NIGHT, ON ASSESSMENT THIS AM, IT IS NOTED THAT PATIENT HAS SKIN TEARS TO HER LEFT LEG WHERE SHE HAD DARKEDNED ESCHAR. PATIENT IS VERY SEDATED TODAY, SHE IS SLEEPY, BUT DID AWAKEN ENOUGH TO TAKE HER MEDICINE. I) PROVIDE PRESCRIBED MEDS. DID CLEANSE LEFT LEG AND LEFT FOOT, FIFTH DIGIT, APPLIED BETADINE AND BANDAID TO TOE AND PUT MEPILEX ON LEFT LEG. R) PATIENT'S FSBS IS 218, DR. RETANA HAS ORDERED LANTUS 10 UNITS, WILL PROVIDE WHEN PHARMACY BRINGS TO THE UNIT. PATIENT IS CONFUSED, BUT THIS AM SHE IS SLEEPY. P) CONTINUE POC.
[2017-10-20 09:52] VITALS: BP 120/72
--- NOTE | 2017-10-20 14:27 | PN ---
PATIENT:JAYDON LAWRENCE MEDICAL RECORD: [id number] LOCATION:[facility] ADMISSION DATE: 10/14/17 PROGRESS NOTE DATE OF SERVICE: 10/19/2017 SUBJECTIVE: The patient's case was discussed with staff. She has no new complaint. OBJECTIVE: The patient is profoundly impaired cognitively. She did not sleep at all last night. They have her down as zero hours. She only ate half of one meal yesterday. She is clearly quite confused and impaired, but her blood sugar and metabolic status seems to have stabilized. I already have her taking a memory enhancing medication and an antipsychotic to help organize her thoughts. I am going to give her a low dose of a benzodiazepine for a day or two to hopefully help her consolidate her sleep and will try through the use of the medicine and behavioral interventions during the day to change her to a more standard sleep-wake schedule. TRANSINT:[id number] Voice Confirmation ID: [id number] DOCUMENT ID: [id number] CATRACHITA RUIZ MD at 1427 CC: [id number] DICTATION DATE: 10/19/17 1421 BUFFING AND POLISHING WHEEL REPAIRER: 10/19/17 1538 ADM IN [facility] [address] [place] [address]
[2017-10-20 19:37] VITALS: BP 140/70
--- NOTE | 2017-10-20 22:54 | NUR ---
B) patient is sleeping, arrouses to name, calmer tonight, resting in hallway for safety I) Administered scheduled medications, monitored for safety and for falls, R) medication compliant, resting quietly with less yelling out, P) Continue plan of care.
[2017-10-21 09:44] VITALS: BP 163/73
--- NOTE | 2017-10-21 10:52 | NUR ---
LET DR. RETANA KNOW PATIENT IS NOT VOIDING URINE AND HE ORDERED A BLADDER SCAN, SCAN SHOWS 696 ML URINE AND HE ORDERED BAE CATHETER. DID PROVIDE INDWELILLING BAE 16 FR CATH WITH IMMEDIATE RETURN OF CLOUDY YELLOW URINE.
--- NOTE | 2017-10-21 10:55 | NUR ---
CALLED PATIENT'S DAUGHTER YANELIS TO LET HER KNOW WE DID INSERT A BAE CATHETER IN HER BLADDER AT THIS TIME. YANELIS SAID "I APPRECIATE YOU" NO OTHER STATEMENT MADE AT THIS TIME.
--- NOTE | 2017-10-21 11:31 | PN ---
PATIENT:JAYDON LAWRENCE MEDICAL RECORD: [id number] LOCATION:[facility] ADMISSION DATE: 10/14/17 PROGRESS NOTE DATE OF SERVICE: 10/20/2017 SUBJECTIVE: The patient's case was discussed with staff. She has no new complaint. OBJECTIVE: The patient has poor insight about her condition. She generally tolerates her medicines well. ASSESSMENT: No change in diagnoses. PLAN: Brief supportive and educational interventions were made. Senior Care prognosis is guarded. I am going to maintain her on her current dose of medicines. TRANSINT:[id number] Voice Confirmation ID: [id number] DOCUMENT ID: [id number] CATRACHITA RUIZ MD at 1131 CC: [id number] DICTATION DATE: 10/20/17 1440 AWAKE OVERNIGHT MONITOR: 10/20/17 211 ADM IN [facility] [address] [place] [address]
--- NOTE | 2017-10-21 12:33 | NUR ---
SPOKE TO PATIENT'S GRANDDAUGHTER AND LET HER KNOW THAT WE PUT IN A BAE BECAUSE SHE HAD NOT VOIDED ALL NIGHT. SHE ASKED "WELL, DID THEY DO A TEST TO SEE IF SHE HAS A URINARY INFECTION?" TOLD HER "NO" SHE SAID "[facility] NOT P[facility] CATHETER'S IN IF SOMEONE DOES NOT URINATE ALL NIGHT THEN SHE ASKED IF PATIENT WAS EATING. TRANSFERRED HER TO THE DAY ROOM TO SPEAK TO THE [facility].
--- NOTE | 2017-10-21 12:42 | NUR ---
B) PATIENT IS MORE AWAKE THIS AFTERNOON, HER BAE IS DRAINING TO GRAVITY. PATIENT IS EATING A LITTLE, BUT SHE CONTINUES TO SPIT ON THE FLOOR AND ON THE TABLE. PATIENT IS NOT COMPREHENDING THAT SHE NEEDS TO SPIT IN A CUP OR A TISSUE, PATIENT DOES HAVE A CUP AVAILABLE AND TISSUES. PATIENT HAS NOT HELPED STAFF TODAY TO ASSIST WITH TRANSFERS, SHE DOES HAVE HER PROSTHESIS ON, BUT SHE IS NOT STADING. PHYSICAL THERAPY SAYS THEY ARE SIGNING OFF D/T HER BEING NONPARTICIPATORY. I) PROVIDE PRESCRIBED MEDS. R) HELD PATIENT'S MEDS THIS AM SHE WAS VERY SLEEPY. P) CONTINUE POC.
[2017-10-21 18:07] LABS: APPEARANCE HAZY (CLEAR); BILIRUBIN NEGATIVE (NEGATIVE); COLOR RED (YELLOW); GLUCOSE 50 mg/dL (NEGATIVE); KETONE NEGATIVE (NEGATIVE); NITRITE POSITIVE (NEGATIVE); PROTEIN 1+ mg/dL (NEGATIVE); SPECIFIC GRAVITY 1.015 (1.005-1.020); UROBILINOGEN NORMAL (NORMAL)
[2017-10-21 18:08] LABS: EPITHELIAL CELLS 0-5 /hpf (0-5); RED CELLS - URINE >50 /hpf (0-5); WHITE CELLS - URINE 0-5 /hpf (0-5)
[2017-10-21 18:09] LABS: BACTERIA MODERATE /hpf (NONE SEEN)
[2017-10-21 19:30] VITALS: BP 127/83
--- NOTE | 2017-10-22 04:09 | NUR ---
B) patient is alert anoriented to sef, restless and trying to climb out of bed, I)Administered scheduled medications, monitored for safety, R) Medication compliant, patient is eating better P) Continue plan of care.
--- NOTE | 2017-10-22 06:01 | PN ---
PATIENT:JAYDON LAWRENCE MEDICAL RECORD: [id number] LOCATION:[facility] ADMISSION DATE: 10/14/17 PROGRESS NOTE DATE OF SERVICE: 10/21/2017 SUBJECTIVE: No new complaint. OBJECTIVE: The patient is quiet and pleasant on approach. She had been rather restless earlier today. Staff note rather poor intake and poor urinary output over the last 24 hours. She has multiple medical problems. Staff note the patient talks to unseen people frequently. PHYSICAL EXAMINATION: On exam, mood is euthymic. Affect is very reserved. Speech is terse. Content of thought is positive for apparent auditory hallucinations. Sensorium shows no change. ASSESSMENT: No change in diagnosis. PLAN: 1. Staff is coordinating with family regarding placement. 2. Continue current medications and supportive therapy. TRANSINT:[id number] Voice Confirmation ID: [id number] DOCUMENT ID: [id number] TOMMY GOVEA III, MD at 0601 CC: [id number] DICTATION DATE: 10/21/17 1117 ORE TRIMMER: 10/21/17 1213 ADM IN [id number] [place] [address]
[2017-10-22 07:00] VITALS: BP 137/71
--- NOTE | 2017-10-22 14:40 | NUR ---
CONFUSED AND DISORIENTED.COMPLIANT WITH MEDS,CRUSHED AND TAKEN IN APPLESAUCE.REQUIRES [facility],SPOONFED PER STAFF WITH POOR APPETITE.BAE TO GRAVITY.HEARD TALKING TO PEOPLE WHO WERE NOT THERE.WILL CONTINUE WITH PLAN OF CARE,MONITOR FOR CHANGES AND SAFETY.
--- NOTE | 2017-10-23 02:26 | NUR ---
RECEIVED IN HALLWAY OUTSIDE OF NURSES STATION. RESTING IN RECLINER WITH EYES OPEN. CONTINUOUSLY ATTEMPTS TO CLIMB OUT OF RECLINER WITHOUT ASSIST. MAEGAN ALARM SOUNDING. ANXIOUS. YELLING LOUDLY. REDIECT AND REORIENT NEEDED. PRN ATIVAN 0.5 MG PO GIVEN FOR INCREASING ANXIETY. RESTING WITH EYES CLOSED AT THIS TIME. CONTINUE PLAN OF CARE.
[2017-10-23 07:00] VITALS: BP 127/69
--- NOTE | 2017-10-23 08:30 | NUR ---
SITTING IN RECLINER QUIETLY. CALM AND COOPERATIVE WITH ASSESSMENT. COMPLIANT WITH TAKING MEDICATIONS CRUSHED IN APPLESAUCE. CONTINUE PLAN OF CARE. WILL MONITOR FOR CHANGES AND SAFETY.
--- NOTE | 2017-10-23 21:14 | NUR ---
RECEIVED IN HALLWAY. SITTING IN RECLINING CHAIR OUTSIDE OF NURSES STATION. CONFUSED. REFUSED PM VITALS. NO SIGNS OF PARANOIA. VISUAL HALLUCINATIONS. REDIRECT AND REORIENT NEEDED. CONTINUES TO REST IN RECLINER IN HALLWAY. CONTINUE PLAN OF CARE
[2017-10-24 07:00] VITALS: BP 126/76
--- NOTE | 2017-10-24 11:36 | NUR ---
LATE ENTRY FROM 10/20. PT'S DTR, YANELIS, STATED SHE WAS HAPPY WITH SERVICES BUT WANTED TO TAKE PT OUT TO GET A SECOND OPINION. TONYA STATED PT WOULD HAVE TO BE SIGNED OUT AMA. YANELIS STATED SHE WILL HAVE A FAMILY MEETING AND DECIDE. PT'S DTR VOICED UNDERSTANDING OF PT'S PROGNOSIS AND DISEASE PROGRESSION.
[2017-10-24 19:34] VITALS: BP 109/64
--- NOTE | 2017-10-24 21:26 | NUR ---
RECEIVED IN HALLWAY. SITTING IN A RECLINER WITH EYES OPEN. BAE INTACT. CALM AND COOPERATIVE WITH CARE AND ASSESSMENTS. NO SIGNS OF HALLUCIANTIONS. NO SIGNS OF PARANOIA. REDIRECT AND REORIENT NEEDED. CONTINUES TO REST IN RECLINER. CONTINUE PLAN OF CARE
--- NOTE | 2017-10-24 22:00 | NUR ---
PATIENT ASSISTED TO EAT A WHOLE CONTAINER OF APPLE SAUCE 4 OZ. FED HER A WHOLE CHOCOLATE ICE CREAM 4 OZ.
[2017-10-25 07:00] VITALS: BP 85/51
--- NOTE | 2017-10-25 08:10 | NUR ---
CALM AND COOPERATIVE WITH CARE. ASSESSMENT COMPLETED PER FLOW SHEET. NO AGGRESSION NOTED. FALL PRECAUTIONS MAINTAINED. WILL CONTINUE PLAN OF CARE.
--- NOTE | 2017-10-25 08:26 | NUR ---
TONYA CONTACTED PT'S DTR, YANELIS, TO DISCUSS [facility] PLACEMENT AND TO GET A LIST OF PREFERENCES TO SEND PAPERWORK FOR DISCHARGE PLANNING. YANELIS STATED SHE WANTED TO SPEAK WITH THE DOCTORS ON THE UNIT BECAUSE SHE IS NOT GOING TO TAKE THE [employer] WORD. TONYA STATED SHE WOULD GIVE HER NUMBER TO PT'S PSYCHIATRIST. YANELIS STATED THANK YOU AND HAVE A GOOD DAY. TONYA RETURNED STATEMENT.
--- NOTE | 2017-10-25 13:20 | NUR ---
SPOKE WITH PT'S DAUGHTER ALONG WITH [employer] IN REGARDS TO HER CONCERNS ABOUT WHAT DR RETANA HAD REPORTED TO HER EARLIER VIA PHONE. I ALLOWED DAUGHTER TO SPEAK AND THEN ADDRESSED CONCERNS. SHE WAS UPSET DUE TO INFORMATION FROM WHEN PT WAS ON MED 2. EXPLAINED THAT WE WERE UNAWARE THAT SHE WAS NOT INFORMED OF CERTAIN ASPECTS OF HER CARE WHILE ON MED 2. ADDRESSED ALL CONCERNS AND REVIEWED DISCHARGE PLANS WITH DAUGHTER. SHE EXPRESSED WANTING TO TAKE HER MOTHER HOME. REVIEWED BAE AND CARE NEEDED. SPOKE ABOUT HOME HEALTH CARE AND DAUGHTER WAS IN AGREEMENT. DAUGHTER HAPPY WHEN LEAVING AND THANKED STAFF FOR THE WONDERFUL CARE THAT WE HAD GIVEN HER MOTHER.
--- NOTE | 2017-10-25 13:50 | PN ---
PATIENT:JAYDON LAWRENCE MEDICAL RECORD: [id number] LOCATION:[facility] ADMISSION DATE: 10/14/17 PROGRESS NOTE DATE OF SERVICE: 10/24/2017 SUBJECTIVE: The patient's case was discussed with staff. She has no new complaint. OBJECTIVE: The patient is in good behavioral control with limited insight about her condition. She generally tolerates her medicines well. ASSESSMENT: No change in diagnoses. PLAN: The patient is severely impaired cognitively. It is clear she has dementia and that it is advanced. Family is not so sure that that is the case, although they are at a loss as to what the problem might be. They do have an interest in taking her for another opinion to the [facility] in [place], which of course is perfectly fine. At this point, we are looking for mcc placement, and unless they want to take her from here to [facility], I would anticipate she will go from here to a mcc in a few days. TRANSINT:[id number] Voice Confirmation ID: [id number] DOCUMENT ID: [id number] CATRACHITA RUIZ MD at 1350 CC: [id number] DICTATION DATE: 10/24/17 1438 AUTOMOTIVE STARTER REPAIRER: 10/24/17 1548 ADM IN [id number] [place] [address]
[2017-10-25] MEDS ORDERED: TRAZODONE HCL50 MG PO (14:09)
[2017-10-25] MEDS ORDERED: NAMENDA5 MG PO (14:09)
[2017-10-25] MEDS ORDERED: FEXOFENADINE HC60 MG PO (14:09)
[2017-10-25] MEDS ORDERED: GEODON20 MG PO (14:10)
[2017-10-25] MEDS ORDERED: LANTUS INSULIN10 ML SC (14:10)
[2017-10-25] MEDS ORDERED: FLORAJEN3 CAPS460 MG PO (14:10)
--- NOTE | 2017-10-25 14:30 | NUR ---
ALL DISCHARGE PERWORK REVIEWED WITH FAMILY AND FAXED TO [facility]. ALL BELONGINS BAGGED AND ACCOUNTED FOR. LEFT VIA W/C WITH JOESPH AND TWO FAMILY MEMBERS TO PRIVATE CAR TO GO HOME.
--- NOTE | 2017-10-26 12:46 | PN ---
PATIENT:JAYDON LAWRENCE MEDICAL RECORD: [id number] LOCATION:[facility] ADMISSION DATE: 10/14/17 PROGRESS NOTE DATE OF SERVICE: 10/25/2017 SUBJECTIVE: The patient's case was discussed with staff. She has no new complaint. OBJECTIVE: The patient denies intent to harm herself or others. She generally tolerates her medicines well. She is severely impaired cognitively, but much more alert and interactive over the past few days. ASSESSMENT: No change in diagnoses. PLAN: The patient will be transitioned out of the hospital today. Her family wants to care for her. She will be discharged today and follow up will be with her primary care physician. TRANSINT:[id number] Voice Confirmation ID: [id number] DOCUMENT ID: [id number] CATRACHITA RUIZ MD at 1246 CC: [id number] DICTATION DATE: 10/25/17 1407 RETURN CHECKER: 10/25/17 1417 DIS IN 10/25/17 [facility] [address] [place] [address]
--- NOTE | 2017-10-29 10:34 | DS ---
PATIENT:JAYDON LAWRENCE :41 MEDICAL RECORD: [id number] DISCHARGE SUMMARY ADMISSION DATE: 10/14/17 DISCHARGE DATE: 10/25/17 IDENTIFYING DATA: The patient is 72 years old and she was admitted to the hospital on a voluntary basis. CHIEF COMPLAINT: Confusion and aggression. HISTORY OF PRESENT ILLNESS: The patient presented to the hospital with mental status change. She has an established diagnosis of dementia and recently had become increasingly confused, paranoid, and was having some hallucinatory experiences. The patient was mildly dehydrated and hypokalemic and was admitted to the medical floor for correction of these underlying metabolic imbalances. They were corrected without significant improvement in her underlying mental status changes. At that point, she was subsequently transitioned to the behavioral unit for additional treatment and evaluation. HOSPITAL COURSE: The patient was admitted to the hospital and fully evaluated from both a medical, psychological, and social standpoint. She was treated with both mood stabilizing and memory enhancing medications. She showed significant improvement in her behavior and she showed some improvement in her underlying cognition, but was still significantly impaired. She certainly was appropriate for a halfway placement and was definitely in need of 70-pzss-a-day supervision. Her family wanted to care for her at home and she apparently has a large extended family who are committed to her well being. She was subsequently transitioned home with family, who had agreed to provide the necessary level of care and thus avoided halfway placement. DISCHARGE DIAGNOSES: AXIS I: Vascular dementia. AXIS II: None. AXIS III: Hypertension, gastroesophageal reflux disease, diabetes, chronic renal failure, and hyperlipidemia. AXIS IV: Moderate stressors. AXIS V: Global assessment of functioning is 30. PLAN: At the time of discharge, the patient was in good behavioral control and had no active thoughts of harming herself or others. She was tolerating her medications well. Her long-term prognosis is guarded. TRANSINT:[id number] Voice Confirmation ID: [id number] DOCUMENT ID: [id number] CATRACHITA RUIZ MD at 1034 CC: [id number] DICTATION DATE: 10/28/17 1226 RELIABILITY MANAGER: 10/29/17 0109 DIS IN 10/25/17 [place] [address]
== END 2017-10-25 15:00 | disposition home health service (06) | DRG 57 ==
LOC: D.PSYCH 15:00
PROVIDERS: Family Medicine; ADMIT Psychiatry & Neurology Psychiatry
DX: I69.919 Unspecified symptoms and signs involving cognitive functions following unspecified cerebrovascular disease (principal); F01.51 Vascular dementia, unspecified severity, with behavioral disturbance; N17.9 Acute kidney failure, unspecified; N39.0 Urinary tract infection, site not specified; I10 Essential (primary) hypertension; K21.9 Gastro-esophageal reflux disease without esophagitis; E11.22 Type 2 diabetes mellitus with diabetic chronic kidney disease; N18.9 Chronic kidney disease, unspecified; B96.20 Unspecified Escherichia coli [E. coli] as the cause of diseases classified elsewhere; R13.12 Dysphagia, oropharyngeal phase; Z74.09 Other reduced mobility; Z89.511 Acquired absence of right leg below knee; K59.00 Constipation, unspecified; E78.5 Hyperlipidemia, unspecified; J30.9 Allergic rhinitis, unspecified